=== PATIENT | female | born 2000 | race Caucasian/White ===

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

== ENCOUNTER → 2018-08-10 | Outpatient (CLI) | payer BC, MEDICAID ==
--- NOTE | 2018-08-10 15:25 | REP ---
Clinical: Pelvic and perineal pain . Technique: Transabdominal pelvic ultrasound followed by transvaginal examination for better evaluation of the endometrium and adnexa with color Doppler evaluation of the ovaries. Findings: Bladder is unremarkable and measures 8.6 x 5.4 x 3.3 cm . Heterogeneous anteverted uterus measures 8.5 x 3.8 x 5.6 cm . The endometrial complex measures 4.6 mm thickness. No discrete uterine or endometrial abnormalities are appreciated. IUD identified extending in to the fundal region of the endometrium. Bilateral ovaries are normal in appearance and vascularity without evidence for torsion. Right ovary measures 3.5 x 1.7 x 2.5 cm ; R I = 0.68 . Left ovary measures 5.0 x 4.4 x 5.2 cm including 4.4 cm hemorrhagic cyst ; R I = 0.50 . Small amount of free fluid in the cul-de-sac likely physiologic . Impression: 1. Essentially normal uterus and right ovary. IUD in satisfactory position. 2. No evidence for torsion. 3. 4.4 cm hemorrhagic cyst in the left ovary likely physiologic. Electronically Signed by Tuan Dyer MD 08/10/2018 03:16 P
== END ==
LOC: M RAD 08:45
PROVIDERS: ATTEND Advanced Practice Midwife
DX: N83.202 Unspecified ovarian cyst, left side (principal); R10.2 Pelvic and perineal pain; Z30.431 Encounter for routine checking of intrauterine contraceptive device

== ENCOUNTER → 2020-02-18 | Outpatient (REF) | payer BC, MEDICAID | LOC: M SFHCWAGY 13:15 | PROVIDERS: ATTEND Advanced Practice Midwife | DX: Z12.4 Encounter for screening for malignant neoplasm of cervix (principal) ==